=== PATIENT | female | born 1945 | race Caucasian/White ===

== ENCOUNTER 2017-04-02 16:10 | Emergency (ER) | payer MEDICARE, OTHER ==
[2017-04-02] MEDS ORDERED: LIDOCAINE HCL 1% MPF SOL ONE (16:52)
[2017-04-02] MEDS ORDERED: LIDOCAINE HCL 1% MDV SOL SC ONE (17:00)
[2017-04-02] MEDS ORDERED: BACITRACIN 500 U/GM OIN TOP ONE ×2 (17:13→17:15)
[2017-04-02 17:28] VITALS: BP 154/98; PULSE 78; RESP 16; TEMP 98.6; O2SAT 94
== END 2017-04-02 17:20 | disposition home or self-care (01) | DRG 605 ==
LOC: ED 16:10
DX: S61.011A Laceration without foreign body of right thumb without damage to nail, initial encounter (principal)
CPT/HCPCS: 99283; J2001